=== PATIENT | female | born 1955 | race Two or more races ===

== ENCOUNTER 2017-08-04 07:24 | Day surgery (SDC) | payer BC ==
[~2017-08-04] VITALS: Ht 165.1 cm; Wt 75.7 kg
[~2017-08-04 07:24] MED LIST: CYCLOBENZAPRINE10 MG ORAL; IBUPROFEN600 MG ORAL; NORCO 5-325 TA1 EACH ORAL
[2017-08-04 08:35] VITALS: BP 134/75
[2017-08-04] MEDS ORDERED: NKM (08:53)
[2017-08-04] MEDS ORDERED: LR 1000ml 1,000 ML IVLG SCH (09:01)
--- NOTE | 2017-08-04 09:05 | Anethesia Preoperative Eval ---
Anesthesia Pre-op PMH/ROS General Date of Evaluation: Aug 04, 2017 Time of Evaluation: 08:00 Anesthesiologist: Anand ASA Score: ASA 1 Mallampati Score Class I : Soft palate, uvula, fauces, pillars visible Class II: Soft palate, uvula, fauces visible Class III: Soft palate, base of uvula visible Class IV: Only hard plate visible Mallampati Classification: Class II Surgeon: Joseph Diagnosis: Screening Surgical Procedure: EGD, Colonoscopy Allergies: Coded Allergies: No Known Allergies (Unverified , 08/01/17) Medications: see eMAR Past Medical History Cardiovascular: Denies: HTN, CAD, [place], valve dz, arrhythmia, other Pulmonary: Denies: asthma, COPD, ELIA, other Gastrointestinal/Genitourinary: Denies: GERD, CRI, ESRD, other Neurologic/Psychiatric: Denies: dementia, CVA, depression/anxiety, TIA, other Endocrine: Denies: DM, hypothyroidism, steroids, other HEENT: Denies: cataract (L), cataract (R), glaucoma, [employer] [employer] (L), [employer] [employer] (R), other Hematology/Immune: Denies: anemia, DVT, bleeding disorder, other Musculoskeletal/Integumentary: Denies: OA, RA, DJD, DDD, edema, other PMH Narrative: Denies PSxH Narrative: C/S X 4 Anesthesia Pre-op Phys. Exam Physician Exam Last Vital Signs Date Time Temp Pulse Resp B/P (MAP) Pulse Ox O2 Delivery O2 Flow Rate FiO2 08/04/17 08:35 97.5 67 18 134/75 100 Room Air 97.5 Constitutional: NAD Neurologic: CN 2-12 intact Cardiovascular: RRR, no M/R/G Respiratory: CTA Gastrointestinal: S/NT/ND Airway Exam Mallampati Score: Class II MO: full ROM: full Teeth: intact Anesthesia Pre-op A/P Risk Assessment & Plan Assessment: Healthy female Plan: GA, TIVA Status Change Before Surgery: No Pre-Antibiotics Drug: None Destin Michel MD Aug 04, 2017 09:05
--- NOTE | 2017-08-04 09:06 | Immediate Post-Op Evaluation ---
Immediate Post-Op Evalulation Immediate Post-Op Evalulation Procedure: EGD, Colonoscopy Date of Evaluation: Aug 04, 2017 Time of Evaluation: 10:25 IV Fluids: 300 Blood Pressure Systolic: 117 Blood Pressure Diastolic: 72 Pulse Rate: 76 Respiratory Rate: 14 O2 Sat by Pulse Oximetry: 100 Temperature (Fahrenheit): 97.4 Pain Score (1-10): 0 Nausea: No Vomiting: No Complications No complication Patient Status: awake, patent, none Hydration Status: adequate Drug: None Destin Michel MD Aug 04, 2017 09:06
--- NOTE | 2017-08-04 09:12 | Pre-Procedure Note/Attestation ---
Pre-Procedure Note/Attestation Complete Prior to Procedure Planned Procedure: not applicable Procedure Narrative: esophagogastroduodenoscopy and colonoscopy Indications for Procedure Pre-Operative Diagnosis: screening colon, GERD Attestation I attest that I discussed the nature of the procedure; its benefits; risks and complications; and alternatives (and the risks and benefits of such alternatives ), prior to the procedure, with the patient (or the patient's legal delivery representative). I attest that, if there was a reasonable possibility of needing a blood transfusion, the patient (or the patient's legal delivery representative) was given the [facility] standardized written summary, pursuant to the [place] Blood Safety Act ([place] Health and Safety Code # 1645, as amended). I attest that I re-evaluated the patient just prior to the surgery and that there has been no change in the patient's H&P, except as documented below: CARY BARNARD Aug 04, 2017 09:12
--- NOTE | 2017-08-04 09:13 | Short Stay Surgery H&P ---
History of Present Illness History of Present Illness Chief Complaint screening colon, GERD HPI Niki Lyle is a 62 year old female who was admitted on for Gerd,Colon Screening Patient History Allergies: Coded Allergies: No Known Allergies (Unverified , 08/01/17) PAST MEDICAL HISTORY: (1) GERD (gastroesophageal reflux disease) (2) Breast lump Medication History Scheduled No Known Medications* (NKM - No Known Medications*), 0 ., (Reported) Discontinued Medications Cyclobenzaprine Hcl* (Flexeril*), 10 MG ORAL TID PRN for Muscle Spasm Discontinued Reason: Pt stopped taking med Hydrocodone Bit/Acetaminophen 5-325* ([place] 5-325*), 1 TAB ORAL Q6H PRN for For Pain Discontinued Reason: Pt stopped taking med Ibuprofen* (Motrin*), 600 MG ORAL Q8H PRN for For Pain Discontinued Reason: Pt stopped taking med Review of Systems Cardiovascular: Reports: no symptoms Respiratory: Reports: no symptoms Skeletal: Reports: no symptoms Gastrointestinal: Reports: gastro esophageal reflux disease Genitourinary: Reports: no symptoms Neurologic: Reports: no symptoms Endocrine: Reports: no symptoms Hematologic: Reports: no symptoms Physical Exam Vital Signs Last Vital Signs Date Time Temp Pulse Resp B/P (MAP) Pulse Ox O2 Delivery O2 Flow Rate FiO2 08/04/17 08:35 97.5 67 18 134/75 100 Room Air 97.5 Skin: normal HENT: normal Heart: normal Lungs: normal Abdomen: normal Extremities: normal Plan Plan of Care esophagogastroduodenoscopy and colonoscopy Attestation Are the patient's medical conditions optimized for surgery? Attestation Response: yes CARY BARNARD Aug 04, 2017 09:13
[2017-08-04] MEDS ORDERED: fentaNYL 100 mcg/2 mL IV PRN (09:15)
--- NOTE | 2017-08-04 10:05 | Endoscopy Procedure Note ---
Endoscopy Procedure Note General Indication for Procedure: screening colon, GERD Procedures Performed: EGD, colonoscopy Operative Findings/Diagnosis: gastrtis, hemorhoids, one colon polyp Specimen: yes Pt Tolerated Procedure Well: Yes Estimated Blood Loss: none Anesthesia Anesthesiologist: heaven Anesthesia: MAC Inserted Devices Implant(s) used?: No Quality Quality of Bowel Preparation: Good Did scope reach the cecum?: Yes Was there any complications?: No GI Core Measures 50 yrs or older w/o bx or poly: No 10yrs. F/U not recommended: Yes If not recommended, why?: Above average risk 10 yrs. F/U needed: Yes 18 years or older w/prev. colo: No CARY BARNARD Aug 04, 2017 10:05
[2017-08-04 10:15] VITALS: BP 117/72
--- NOTE | 2017-08-04 10:17 | 48 Hour Post Anesthesia Eval ---
Post Anesthesia Evaluation Procedure: EGD, Colonoscopy Date of Evaluation: Aug 04, 2017 Time of Evaluation: 10:45 Blood Pressure Systolic: 123 0: 75 Pulse Rate: 74 Respiratory Rate: 15 O2 Sat by Pulse Oximetry: 100 Airway: patent Nausea: No Vomiting: No Pain Intensity: 0 Hydration Status: adequate Cardiopulmonary Status: Stable Mental Status/LOC: patient returned to baseline Follow-up Care/Observations: As per GI Post-Anesthesia Complications: No anesthetic complication Follow-up care needed: N/A Destin Michel MD Aug 04, 2017 10:17
[2017-08-04 10:20] VITALS: BP 118/69
[2017-08-04 10:25] VITALS: BP 114/76
[2017-08-04 10:40] VITALS: BP 135/50
[2017-08-04 10:55] VITALS: BP 129/84
--- NOTE | 2017-08-04 11:30 | Procedure Note ---
DATE OF PROCEDURE: 08/04/2017 SURGEON: Ricardo Ruiz M.D. PROCEDURE: Upper endoscopy with biopsy and colonoscopy with biopsy. ANESTHESIA: Per . INSTRUMENT: Olympus adult flexible upper endoscope and colonoscope. INDICATION: Screening colonoscopy, chronic GERD, dysphagia. REASON FOR PROCEDURE: The procedure, risks, benefits, and possible consequences, including hemorrhage, aspiration, perforation and infection, and alternative treatments, were explained to the patient/legal guardian by Dr. Ricardo Ruiz and the patient/legal guardian understood and accepted these risks. DESCRIPTION OF PROCEDURE: After informed consent was obtained and the patient was adequately sedated, Olympus upper endoscope was advanced from mouth into the second portion of the duodenum and retroflexion was performed in the stomach. The patient has diffuse gastritis. Random biopsy from antrum and body was obtained to rule out H. pylori infection. The patient had some nodularity in the distal esophagus, nonspecific. Biopsy from this area was also obtained. The rest of the upper endoscopic examination grossly within normal limits. At this time, the upper endoscope was retrieved. The patient was turned over for colonoscopy. First, rectal examination was performed, which is positive for external and internal hemorrhoids. Then, the scope was advanced from the rectum into the cecum, and then subsequently into the terminal ileum. Quality of prep was very good except for the right colon, which was filled of greenish fluid which we washed and we claimed as much as best as we could. The patient had 1 colonic polyp, diminutive in the transverse colon, removed with the cold biopsy forceps technique. The rest of the exam grossly within normal limit. Retroflexion of rectum showed evidence of medium/large internal hemorrhoid. FINDINGS: 1. Gastritis, status post biopsy to rule out Helicobacter pylori infection. 2. Nodularity in the distal esophagus, status post biopsy. 3. Internal and external hemorrhoids. 4. One colonic polyp removed, see above for details. RECOMMENDATIONS: 1. Follow up biopsy results and treat accordingly. 2. We will recommend repeat colonoscopy in 5 years. Ricardo Ruiz M.D. DR: QUINTIN JOB#: [id number] CC:
--- NOTE | 2017-08-06 15:15 | Cardiology Report ---
APPROVED REPORT EKG Measurement Heart [id number] NM [id number] Normal sinus rhythm Normal ECG
== END 2017-08-04 11:10 | disposition home or self-care (01) ==
LOC: GAS 07:24
DX: Z12.11 Encounter for screening for malignant neoplasm of colon (principal); K21.9 Gastro-esophageal reflux disease without esophagitis; K29.70 Gastritis, unspecified, without bleeding; K64.4 Residual hemorrhoidal skin tags; K64.8 Other hemorrhoids; K63.5 Polyp of colon
CPT/HCPCS: 93005; 94003; 94150